=== PATIENT | female | born 1955 | race Caucasian/White ===

== ENCOUNTER → 2016-08-12 | Outpatient (CLI) | payer MEDICARE, OTHER ==
[~2016-08-12] MED LIST: ACETAMINOPHEN; AMITIZA PO; AMITIZA24 MCG PO; APAP325 M2 PO; ASTELIN137 MCG INH; ATENOLOL25 MG PO; AVELOX400 MG PO; AZELASTINE137 MCG/0.; AZELASTINE137 MCG/0. NS; B6100 MG PO; BACTRIM DS TABL1 TAB; BISACODYL10 MG/SUPP; CALCIUM 500 + D1 TAB; CALCIUM 500 MG1 TAB PO; CALCIUM 5001 TAB PO; CALCIUM CHEW; CALCIUM1 TAB.CHEW PO; CALCIUM500 M1; CENTRUM PO; CERTA VITE PO; CERTAGEN PO; CHEWABLE CALCI1 EACH PO; CLARITIN10 MG; CLARITIN10 MG PO; CLONAZEP PO; CLONAZEPAM0.25 MG/TA PO; CLONAZEPAM0.25 MG/TA SL; CLONAZEPAM0.5 MG PO; D5LR; DEBROX OTIC DRO15 ML AU; DEPAKOTE; DEPAKOTE SPRIN125 MG; DEPAKOTE SPRIN125 MG PO; DIASTAT ACUDIAL1 KIT; DIASTAT10 MG PR; DIAZEPAM10 MG PO; DIVALPROEX PO; FLUCONAZOLE150 M1 PO; FLUNISOLIDE; FLUNISOLIDE25 ML; FORTICAL; GUAIFENESIN PO; HYDROCORTISONE30 G4 PR; ISONIAZID300 MG PO; KEPPRA PO; KEPPRA1000 MG PO; KEPPRA750 M1 PO; KEPPRA750 MG; KEPPRA750 MG PO; KLONOPIN PO; KLONOPIN0.25 MG/TA PO; LACTULOSE10 G/15 ML; LACTULOSE10 G/15 ML PO; LAMICTAL PO; LAMICTAL100 MG PO; LAMICTAL25 MG PO; LAMOTRIGINE200 MG PO; LEVAQUIN; LEVAQUIN750 MG PO; LOTRIMIN 1% CR30 GM EXT; LOVASTATIN20 MG PO; MACRODANTIN PO; MEVACOR; MEVACOR PO; MIACALCIN4 ML; MILK OF MAGNESIA PO; MIRALAX17 GM PO; MIRALAX255 GM; MIRALAX255 GM PO; MUCINEX DM1 TAB.SR . PO; NEXIUM 24HR20 M1 FT; NEXIUM PO; OMEPRAZOLE20 M1 PO; PHENERGAN PR; PREMARIN VAG CR45 GM MC; PRILOSEC; PRILOSEC PO; PRILOSEC20 M1 PO; PRILOSEC20 MG PO; PROBIOTIC1 EAC1 PO; RISAMINE OINTM113 GM TOP; ROCEPHIN IV; SENNA-LAX8.6 M1 PO; SENNA8.6 M1 PO; SENNA8.6 M2 PO; SILACE60 MG/15 M FT; THERAGRAM; THERAGRAN-M 1,21 CAP PO; THERAGRAN1 TAB PO; TIGAN; TOPAMAX PO; VIMPAT1 EACH PO; VIMPAT200 MG PO; VIMPAT200 MG/20 IV; VITAMIN D 4001 UDTAB PO; VITAMIN D1000 UNI1 PO; VITAMIN D1000 UNIT PO; VITAMIN D2000 UNI1 PO; VITAMIN D400 UNI1 PO; ZITHROMAX IV; ZYRTEC10 M1 PO; [UNRECOGNIZED DRUG - MIXTURE] IV; [UNRECOGNIZED DRUG - OTHER]; [UNRECOGNIZED DRUG - OTHER] PO
== END | disposition home or self-care (01) ==
LOC: CSSDAY 09:23
DX: M81.0 Age-related osteoporosis without current pathological fracture (principal)
CPT/HCPCS: 96372; J0897

== ENCOUNTER → 2016-09-22 | Outpatient (CLI) | payer MEDICARE, OTHER | END | disposition home or self-care (01) | LOC: CRAD 10:11 | DX: R13.10 Dysphagia, unspecified (principal) | CPT/HCPCS: 74230; 92611; G8996-GN; G8997-GN; G8998-GN ==

== ENCOUNTER → 2016-10-01 | Outpatient (CLI) | payer MEDICARE, OTHER ==
--- NOTE | ~2016-10-01 | XA166 ---
[facility] A Service of [facility] RADIOLOGY TEXT RESULTS PATIENT: MYLA GALINDO LOCATION: CIVR : 53 UNIT #: [id number] AGE: [address]: Sal Nguyen MD SEX: F ORDER DR: [id number] [facility] [address] [place], [place] [address] [id number] O MR#: [id number] Acc #: [id number] NAME: MYLA GALINDO : 1955 SEX: F STUDY DATE/TIME: 10/01/2016 9:14 UNIT: CIVR ROOM: STUDY DESCRIPTION: XA PICC Line Placement WO Port Attending Physician: Sal Nguyen Sr., M.D. Referring Physician: Sal Nguyen Sr., M.D. Ordering Physician: Sal Nguyen Sr., M.D. Primary Care Physician: Primary Care Physician No MEDICAL IMAGING REPORT This report is preliminary unless electronic signature is present EXAM PICC line placement under ultrasound and fluoroscopy HISTORY Foot cellulitis. Long-term antibiotic therapy. PRE-PROCEDURE The procedure was explained to the patient and/or patient volunteer patient representative including risks, benefits, potential complications and potential for alternative forms of treatment. Informed consent was obtained, and prior to initiating the procedure a formal timeout procedure was performed. PROCEDURE Using full standard sterile barrier technique, including caps, gowns, gloves, masks, as well as sterile skin preparation and standard sterile draping, the right arm was prepped and draped in the usual fashion, and real-time sterile ultrasound guidance was used to localize an arm vein and to confirm vessel patency. A hard copy ultrasound image was recorded. After local anesthesia with 1% Xylocaine, the basilic vein was punctured using real-time sterile ultrasound guidance, and an 0.018 guidewire was advanced into the superior vena cava, using fluoroscopic guidance. The tip is at the cavoatrial junction. A 4 Guyanese single-lumen PICC trimmed to 37 cm was then measured and positioned in the superior vena cava. The position of the line was documented with a radiographic image. The line was secured in place with an adhesive dressing and an antibiotic patch was applied. Total fluoro time was 0.3 minutes. The dose is 3 mGy air kerma. IMPRESSION Successful placement of a 4 [place]ese single lumen PowerPICC via the right [facility]. [facility] A Service of [facility] RADIOLOGY TEXT RESULTS PATIENT: MYLA GALINDO LOCATION: [facility] : 54 UNIT #: [id number] AGE: [address]: Sal Nguyen MD SEX: F ORDER DR: arm under ultrasound and fluoroscopic guidance. The tip of the PICC is in good position in the superior vena cava. Dictated by... Vahe Graham M.D. THIS IS AN ELECTRONICALLY VERIFIED REPORT Vahe Graham M.D. at 10/02/2016 7:26 AM Víctor TD: 10/01/2016 13:04 JOB #: [id number] MEDICAL IMAGING REPORT Page 1 of 1 COPY
== END | disposition home or self-care (01) ==
LOC: CIVR 08:50
PROC: 02HV33Z Insertion of Infusion Device into Superior Vena Cava, Percutaneous Approach (ICD-10-PCS; principal; 2016-10-01)
DX: Z45.2 Encounter for adjustment and management of vascular access device (principal); L03.115 Cellulitis of right lower limb; Z79.2 Long term (current) use of antibiotics
CPT/HCPCS: 76937; 77001; C1751; J1642

== ENCOUNTER → 2016-11-26 | Outpatient (CLI) | payer MEDICARE, OTHER ==
--- NOTE | ~2016-11-26 | EKG ---
PATIENT: MYLA GALINDO UNIT #: [id number] Ventricular Rate: 61 BPM Atrial Rate: 277 BPM QRS Duration: 78 ms Q-T Interval: 420 ms QTC Calculation(Bezet): 422 ms Calculated R [place]: 75 degrees Calculated T Ta[place]: 77 degrees Diagnosis Line: Undetermined rhythm Diagnosis Line: Abnormal ECG Diagnosis Line: When compared with ECG of 17-SEP-2015 16:47, Diagnosis Line: Diagnosis Line: ST now depressed in Lateral leads Diagnosis Line: Confirmed by DEVAN HERRING MD ([id number]) on Diagnosis Line: 11/27/2016 10:35:57 AM INTERPRETING MD: NIMA AKHTAR
== END | disposition home or self-care (01) ==
LOC: CEKG 08:00
DX: Z02.89 Encounter for other administrative examinations (principal)
CPT/HCPCS: 93005

== ENCOUNTER → 2017-01-27 | Outpatient (CLI) | payer MEDICARE, OTHER | END | disposition home or self-care (01) | LOC: CSSDAY 12:04 | DX: M81.0 Age-related osteoporosis without current pathological fracture (principal) | CPT/HCPCS: J0897 ==